=== PATIENT | male | born 1945 | race Caucasian/White ===

== ENCOUNTER → 2024-07-23 18:51 | Outpatient (REF) | payer MEDICARE, BC, SELFPAY | LOC: DHSLP 18:51 | PROVIDERS: ATTENDING PHYSICIAN Internal Medicine Cardiovascular Disease; FAMILY PHYSICIAN Family Medicine | DX: G47.19 Other hypersomnia (principal); R06.83 Snoring | CPT/HCPCS: 95800 ==

== ENCOUNTER → 2024-08-07 14:43 | Outpatient (REF) | payer MEDICARE, BC, SELFPAY | LOC: RCS 14:43 | PROVIDERS: ATTENDING PHYSICIAN Internal Medicine Cardiovascular Disease; FAMILY PHYSICIAN Family Medicine | DX: I48.91 Unspecified atrial fibrillation (principal) | CPT/HCPCS: 93306 ==

== ENCOUNTER → 2025-02-05 09:08 | Outpatient (REF) | payer MEDICARE, BC, SELFPAY | LOC: DHSLP 09:08 | PROVIDERS: ATTENDING PHYSICIAN Internal Medicine; FAMILY PHYSICIAN Family Medicine | DX: G47.33 Obstructive sleep apnea (adult) (pediatric) (principal) | CPT/HCPCS: 95810 ==

== ENCOUNTER → 2025-03-02 09:32 | Outpatient (REF) | payer MEDICARE, BC, SELFPAY | LOC: DHSLP 09:32 | PROVIDERS: ATTENDING PHYSICIAN Internal Medicine; FAMILY PHYSICIAN Family Medicine | DX: G47.33 Obstructive sleep apnea (adult) (pediatric) (principal); G47.31 Primary central sleep apnea; G47.61 Periodic limb movement disorder | CPT/HCPCS: 95811 ==

== ENCOUNTER → 2025-05-26 16:53 | Outpatient (REF) | payer MEDICARE, BC, SELFPAY | LOC: RAD 16:53 | PROVIDERS: ATTENDING PHYSICIAN Family Medicine | DX: R05.1 Acute cough (principal) | CPT/HCPCS: 71046 ==

== ENCOUNTER → 2025-07-17 11:22 | Outpatient (REF) | payer MEDICARE, BC, SELFPAY | LOC: HWRAD 11:22 | PROVIDERS: ATTENDING PHYSICIAN Nurse Practitioner Adult Health; FAMILY PHYSICIAN Family Medicine | DX: R91.1 Solitary pulmonary nodule (principal) | CPT/HCPCS: 71250 ==